=== PATIENT | female | born 1965 | race Caucasian/White ===

== ENCOUNTER 2024-09-19 03:08 | Emergency (ER) | payer OTHER ==
[~2024-09-19] VITALS: Ht 165.1 cm; Wt 85.3 kg
--- NOTE | 2024-09-19 03:28 | ERN ---
ED Note History of Present Illness Stated Complaint: C/O WEAKNESS, NOT SLEEPING Chief Complaint: Weakness Time Seen by MD: 03:13 Dictation: This is a 58-year-old female who presented to the emergency room stating that she is very weak as she has not slept and is suffering from insomnia for many years. She has taken Ambien in the past and also trazodone. She stated that a few of her friends were [place] the border and she had them fill trazodone for her she also got Xanax from [place] which she took a few days ago. She is doubtful about the possibility of those medications and is concerned about them being laced with illicit meds. She is originally from [place] and used to work for the [email or web address] for over 21 years. She started smoking cigarette at the age of 8 and marijuana in 7th grade onwards. She could not keep a job and was on disability at age 23 for ADHD. She was also diagnosed with bipolar disorder. She was on antipsychotics in the past that gave her tardive dyskinesia. Patient was on Adderall and eventually went back to work full-time. She recently decided to leave [place] and drive around multiple states and finally landed in [place]. She stated that she has friends in [facility]. She stated that her cheated on her and gave her genital herpes. She indicated that she always had sleep issues and if she does not sleep at least 8 hours, she can not function and feels that her mind is not right Temperature 97.5 pulse 79 respirations 20 blood pressure 136/91 with a pulse oximetry of 96% on room air The main reason for her coming to the emergency room is to get something to sleep Allergies: Coded Allergies: haloperidol (Unverified Allergy, Unknown, 09/19/24) Home Meds Active Scripts Zolpidem Tartrate (Ambien) 5 Mg Tablet, 1 TAB PO HSPRN PRN for sleep for 5 Days, #5 TAB 0 Refills Prov:ROSINA YEE MD 09/19/24 Trazodone HCl (Trazodone HCl) 50 Mg Tablet, 1 TAB PO HS for 15 Days, #15 TAB 0 Refills Prov:ROSINA YEE MD 09/19/24 Past Medical History Past Medical History: Other (History of genital herpes) Additional Past Medical Hx: ADHD, history of bipolar Surgical History: Unknown PSYCH History: attn. deficit disorder, bipolar Social History: Smokers (Smokes cigarettes like chimney since age 8, vapes nicotine), Drugs (Smokes and vapes marijuana, has also used crack cocaine), ETOH History: Not Applicable RN Note Reviewed/Agreed w/PFSH: Yes Review of System Dictation Constitutional: Negative for fever,chills, and weight loss Eyes: Negative for injury, pain,redness, and discharge ENT: Negative for injury,pain or swelling Cardiovascular: Negative for chest pain, palpitations, and edema Respiratory: Negative for shortness of breath, cough, and wheezing, Abdomen/GI: Negative for abdominal pain, nausea, vomiting, diarrhea, and constipation Back: Negative for injury and pain : Negative for injury, bleeding and discharge MS/Extremity: Negative for injury and deformity Skin: Negative for rash, and discoloration Neuro: Negative for headache, weakness, numbness, tingling, and seizure Psych: Negative for suicide ideation, homicidal ideation, and hallucinations as an HPI Initial Vital Sign VS Vital Signs Date Time Temp Pulse Resp B/P (MAP) Pulse Ox O2 Delivery O2 Flow Rate FiO2 09/19/24 03:12 97.5 79 20 136/91 96 Room Air 09/19/24 03:48 0 21 Physical Exam Dictation General: awake, alert, NAD very distracted easily needs constant redirection Head/Face: Normocephalic, atraumatic Eyes: PERRL, EOMI, vision at baseline ENT: oral cavity clear, TMs clear, no signs of infection Neck: Trachea midline, supple, no nuchal rigidity Cardiovascular: RRR, normal S1/S2, No MRGs, no JVD Respiratory: CTAB, no respiratory distress, No rales or wheezes Abdomen: Soft, non-tender, non-distended, normal bowel sounds, no guarding or rebound. Skin: Warm, dry, normal turgor, no rash MS/Extremity: Pulses equal, no cyanosis, neurovascular intact, FROM Neuro: COAx4, GCS 15, strength 5/5, CN 2-12 intact, normal cerebellar exam, norm al gait, Psych: Normal behavior, mood, and affect normal Extremities-trace edema without any palpable cords, Homans sign is negative Results (Laboratory/Radiology) Laboratory/Radiology Laboratory Tests Test 09/19/24 03:24 3/4/25 03:39 Urine Color COLORLESS (YELLOW) Urine Appearance CLEAR (CLEAR) Urine pH 5.5 (5.0-8.0) Urine Specific [place] 1.001 (1.001-1.031) Urine Protein NEGATIVE mg/dL (NEGATIVE) Urine Glucose (UA) NEGATIVE mg/dL (NEGATIVE) Urine Ketones NEGATIVE mg/dL (NEGATIVE) Urine Occult Blood NEGATIVE (NEGATIVE) Urine Nitrate NEGATIVE (NEGATIVE) Urine Bilirubin NEGATIVE mg/dL (NEGATIVE) Urine Urobilinogen 0.2 mg/dL (0.2-1.0) Urine Leukocyte Esterase 25 Terry/uL (NEGATIVE) H Urine RBC 0-1 /HPF (0-1) Urine WBC 2-5 /HPF (0-1) H Urine Squamous Epithelial Cells RARE /HPF (0-2) Urine Bacteria None /HPF (None Seen) Urine Opiates Screen NEGATIVE (NEGATIVE) Urine Barbiturates Screen NEGATIVE (NEGATIVE) Urine Phencyclidine Screen NEGATIVE (NEGATIVE) Urine Amphetamines Screen NEGATIVE (NEGATIVE) Urine Benzodiazepines Screen NEGATIVE (NEGATIVE) Urine Cocaine Screen NEGATIVE (NEGATIVE) Urine Marijuana (THC) Screen NEGATIVE (NEGATIVE) White Blood Count 7.4 K/uL (4.8-10.8) Red Blood Count 4.24 MIL/uL (4.00-5.50) Hemoglobin 13.1 g/dL (12.0-16.0) Hematocrit 38.5 % (36-48) Mean Corpuscular Volume 90.8 fL (79-99) Mean Corpuscular Hemoglobin 30.9 pg (27.0-33.0) Mean Corpuscular Hemoglobin Concent 34.0 g/dL (32.0-36.0) Red Cell Distribution Width 12.6 % (11.0-15.5) Platelet Count 287 K/uL (130-400) Mean Platelet Volume 8.9 fL (7.5-10.5) Immature Granulocyte % (Auto) 0.3 % (0-1) Neutrophils (%) (Auto) 48.2 % (40.0-77.0) Lymphocytes (%) (Auto) 40.5 % (21.0-51.0) Monocytes (%) (Auto) 7.6 % (3.0-13.0) Eosinophils (%) (Auto) 3.0 % (0.0-8.0) Basophils (%) (Auto) 0.4 % (0.0-5.0) Neutrophils # (Auto) 3.5 K/uL (1.8-7.7) Lymphocytes # (Auto) 3.0 K/uL (1.0-4.8) Monocytes # (Auto) 0.6 K/uL (0.1-1.0) Eosinophils # (Auto) 0.22 K/uL (0.00-0.70) Basophils # (Auto) 0.03 K/uL (0.00-0.20) Absolute Immature Granulocyte (auto 0.02 K/uL (0-1) Nucleated Red Blood Cells 0.0 % (0.0-0.19) Sodium Level 135 mmol/L (136-145) L Potassium Level 3.6 mmol/L (3.5-5.1) Chloride Level 100 mmol/L (101-111) L Carbon Dioxide Level 28 mmol/L (21-32) Blood Urea Nitrogen 16 mg/dL (7-18) Creatinine 0.8 mg/dL (0.5-1.0) Glomerular Filtration Rate Calc 85 mL/min (>90) Random Glucose 95 mg/dL (70-105) Total Calcium 8.9 mg/dL (8.5-10.1) Thyroid Stimulating Hormone (TSH) 1.65 uIU/mL (0.36-3.74) Labs Reviewed?: Yes ED Course ED Course Orders Procedure Category Date Status Time Cbc With Differential LAB 09/19/24 Complete 03:25 Basic Metabolic Panel LAB 09/19/24 Complete 03:25 Urinalysis Profile LAB 09/19/24 Complete 03:25 Drug Screen Urine LAB 09/19/24 Complete 03:35 Thyroid Stimulating LAB 09/19/24 Complete Hormone 03:39 Zolpidem Tartrate 5 PHA 09/19/24 Complete Mg Tab (Ambien) 05:30 Current Medications Medications (Trade) Dose Ordered Sig/Lydia Route PRN Reason Start Time Stop Time Status Last Admin Dose Admin Zolpidem Tartrate (AmbIEN) 5 mg ONCE ONCE PO 09/19/24 05:30 09/19/24 05:31 DC 09/19/24 05:35 Vital Signs Date Time Temp Pulse Resp B/P (MAP) Pulse Ox O2 Delivery O2 Flow Rate FiO2 09/19/24 05:40 98.6 72 18 125/67 96 Room Air* 0 21 09/19/24 03:48 98.6 78 18 143/85 99 Room Air* 0 21 09/19/24 03:12 97.5 79 20 136/91 96 Room Air We will perform diagnostic labs, Once the results are available, will review and personally interpreted the labs to rule out any acute life-threatening emergency the trach require immediate intervention and treatment. I will then re-evaluate the patient after treatment and diagnostic exams have return to determine whether the patient requires any further testing, can safely be discharged home or need further admission to hospital for additional treatment and evaluation. CBC within normal limits, BNP 7 reviewed. Urinalysis showed small amounts of leuko esterase but WBCs were 2-5 only. I had a long discussion with the patient and counseled her that chronic insomnia, substance abuse all need to be addressed. She will set up an appointment with the primary care physician and follow up for routine health maintenance as well as any psychiatric referral as necessary. Medical Decision Making MDM MDM: Differential diagnosis: Rationale: Tests considered and ordered secondary to shared decision making include: Previous outside records reviewed: Old ER visits. Risk of complication and/or morbidity or mortality of patient management: None Medications-Per medication reconciliation Need for hospitalization: Patient does not meet criteria for hospitalization. Need for emergency major/minor surgery: No There are no social concerns with this patient. Prescription drug management Prescriptions will include symptomatic care Patient's prior external medical records from other ER visits were reviewed by me as indicated. Prior testing and results from previous visits were reviewed. Prior tests were taken into account with medical decision making and resource utilization, independent historian/historians were used to obtain complete medical history. I independently interpreted the test that were performed, results were reviewed by me and considered findings on radiology if ordered. Medical management and examination interpretation discussions were had by me with other qualified healthcare professionals as indicated for the patient's care. Problem List Problem List: (1) Insomnia (2) ADHD (3) Alcohol abuse DX & DISP Disposition: Discharge Departure Impression: Primary Impression: Insomnia Additional Impressions: Alcohol abuse, ADHD Condition: Stable Scripts Zolpidem Tartrate (Ambien) 5 Mg Tablet 1 TAB PO HSPRN PRN for sleep for 5 Days, #5 TAB 0 Refills Prov: ROSINA YEE MD 09/19/24 Trazodone HCl (Trazodone HCl) 50 Mg Tablet 1 TAB PO HS for 15 Days, #15 TAB 0 Refills Prov: ROSINA YEE MD 09/19/24 Additional Instructions: Patient and the caregiver have been informed of all the diagnostic tests and the imaging conducted during the today's visit to the emergency room and has v erbalized understanding of the results I have personally reviewed and interpreted all diagnostic exams performed here in the ER today as well as the vital signs documented by the nursing staff. The patient is now being discharged to home and should follow up with the primary care physician or the specialist as directed by the ER staff. Follow-up with primary care provider in 1 to 2 days. Take medications as directed here in the emergency room. Okay to continue home medications unless otherwise discussed during your visit in the emergency room today. Return to your nearest emergency room if symptoms worsen or if there is no improvement. Call 911 if you need immediate assistance. Take Tylenol or Motrin [id number] as needed and if no contraindications are present. Increase oral hydration. A wound culture or urine culture was ordered here in the emergency room department please follow-up with primary care provider and advise them to get repeat ports from our facility. If you had any Elliot wrap/splints that were applied here, please do not remove them until you see your primary care or specialty. ROSINA YEE MD Sep 19, 2024 03:28
[2024-09-19 03:37] LABS: APPEARANCE,URINE CLEAR (CLEAR); BILIRUBIN,URINE NEGATIVE (NEGATIVE); COLOR,URINE COLORLESS (YELLOW); GLUCOSE, URINE (UA) NEGATIVE (NEGATIVE); KETONES,URINE NEGATIVE (NEGATIVE); LEUKOCYTE ESTERASE ,URINE 25 Leu/uL (NEGATIVE); NITRATE,URINE NEGATIVE (NEGATIVE); OCCULT BLOOD,URINE NEGATIVE (NEGATIVE); PH,URINE 5.5 (5.0-8.0); PROTEIN,URINE NEGATIVE (NEGATIVE); UROBILINOGEN,URINE 0.2 mg/dL (0.2-1.0)
[2024-09-19 03:42] LABS: ADD UA MICROSCOPIC YES
[2024-09-19 03:46] LABS: RBC,URINE 0-1 /HPF (0-1); SQUAMOUS EPITHELIAL CELL,UR RARE /HPF (0-2)
[2024-09-19 03:53] LABS: BASOPHILS # (AUTO) 0.03 K/uL (0.00-0.20); BASOPHILS % (AUTO) 0.4 % (0.0-5.0); EOSINOPHILS # (AUTO) 0.22 K/uL (0.00-0.70); HEMATOCRIT 38.5 % (36-48); IMMATURE GRANULOCYTE ABSOLUTE 0.02 K/uL (0-1); LYMPHOCYTES % (AUTO) 40.5 % (21.0-51.0); MEAN CORPUSCULAR HEMOGLOBIN 30.9 pg (27.0-33.0); MEAN CORPUSCULAR VOLUME 90.8 fL (79-99); MONOCYTES # (AUTO) 0.6 K/uL (0.1-1.0); MONOCYTES % (AUTO) 7.6 % (3.0-13.0); NEUTROPHILS # (AUTO) 3.5 K/uL (1.8-7.7); NEUTROPHILS % (AUTO) 48.2 % (40.0-77.0); PLATELET COUNT (AUTO) 287 K/uL (130-400); RED BLOOD CELL COUNT(AUTO) 4.24 MIL/uL (4.00-5.50); RED CELL DISTRIBUTION WIDTH 12.6 % (11.0-15.5); WHITE BLOOD COUNT (AUTO) 7.4 K/uL (4.8-10.8)
[2024-09-19 04:14] LABS: CREATININE 0.8 mg/dL (0.5-1.0); POTASSIUM 3.6 mmol/L (3.5-5.1); THYROID STIMULATING HORMONE 1.65 uIU/mL (0.36-3.74)
[2024-09-19] MEDS ORDERED: ZOLP5TAB2 PO (04:21)
[2024-09-19] MEDS ORDERED: TRAZ-185 PO (04:21)
[2024-09-19 05:15] LABS: AMPHET/METH SCREEN,URINE NEGATIVE (NEGATIVE); BARBITURATE SCREEN, URINE NEGATIVE (NEGATIVE); BENZODIAZEPINES SCREEN,URINE NEGATIVE (NEGATIVE); CANNABINOID SCREEN,URINE NEGATIVE (NEGATIVE); COCAINE SCREEN,URINE NEGATIVE (NEGATIVE); OPIATE SCREEN,URINE NEGATIVE (NEGATIVE); PHENCYCLIDINE SCREEN,URINE NEGATIVE (NEGATIVE)
[2024-09-19] MEDS: ZOLPidem TARTrate 5 MG TAB PO ONE (05:35)
[2024-09-19 05:40] VITALS: BP 125/67; PULSE 72; RESP 18; TEMP 98.6; O2SAT 96
== END 2024-09-19 05:41 | disposition home or self-care (01) ==
LOC: EDH 03:08
DX: G47.00 Insomnia, unspecified (principal); F10.10 Alcohol abuse, uncomplicated; F90.9 Attention-deficit hyperactivity disorder, unspecified type; F17.210 Nicotine dependence, cigarettes, uncomplicated
CPT/HCPCS: 36415; 80048; 80305; 81001; 84443; 85025; 99283